=== PATIENT | male | born 1945 | race Caucasian/White ===

== ENCOUNTER 2020-05-01 10:50 | Inpatient (IN) ==
[2020-05-01] MEDS ORDERED: ASPIRIN 325 MG TABLET PO STA (11:30)
[2020-05-01] MEDS ORDERED: methylPREDNISolone SOD SUC 125 MG/2 ML VIAL IV STA (11:31)
[2020-05-01 11:48] LABS: Basophils # 0.1 10*3/uL (0.0-0.2); Basophils % 1.4 % (0.0-0.8); Eosinophils # 0.2 10*3/uL (0.0-0.87); Eosinophils % 5.8 % (0.00-10.9); Hematocrit 43.1 VOL% (42.0-52.0); Hemoglobin 15.6 GM/DL (14.0-18.0); Immature Granulocytes % 0.3 %; Immature Granulocytes Absolute 0.01 #; Lymphocytes # 1.5 10*3/uL (1.4-4.0); Lymphocytes % 41.4 % (21.2-54.2); Mean Corpuscular HGB Conc 36.2 GM/DL (32-36); Mean Corpuscular Volume 93.3 FL (87-102); Monocytes % 11.9 % (1.7-12.7); Neutrophils % 39.2 % (38.7-73.9); Platelet Count 153 T/CUMM (130-400); Red Blood Count 4.62 MC/CUMM (3.8-5.5); Red Cell Distribution Width 12.3 % (9.3-17.3); White Blood Count 3.6 T/CUMM (4-12)
[2020-05-01 12:17] LABS: PT Patient Result 10.9 SECS (9.8-11.9); Partial Thromboplastin Time 29.1 SECS (23.9-33.8)
[2020-05-01 12:42] LABS: Alanine Aminotransferase 28 U/L (16-61); Albumin 3.7 G/DL (3.4-5.0); Alkaline Phosphatase 57 U/L (45-117); Aspartate Amino Transferase 25 U/L (0-37); Blood Urea Nitrogen 10 MG/DL (7-18); Calcium 9.3 MG/DL (8.5-10.1); Estimated Glom Filtration Rate 112 ML/MIN; Glucose 123 MG/DL (74-106); Osmolality,Calculated 274.7 MOS/KG (273-304); Total Protein 7.3 G/DL (6.4-8.3)
[2020-05-01] MEDS ORDERED: ENOXAPARIN 40 MG/0.4 ML SYRINGE SUBCUT STA (13:22)
[2020-05-01] MEDS ORDERED: GLUCAGON 1 MG VIAL IM PRN (14:45)
[2020-05-01] MEDS ORDERED: BISACODYL 5 MG TABLET PO PRN (14:45)
[2020-05-01] MEDS ORDERED: ONDANSETRON 4 MG/2 ML VIAL IV PRN (14:45)
[2020-05-01] MEDS ORDERED: ZALEPLON 5 MG CAPSULE PO PRN (14:45)
[2020-05-01] MEDS ORDERED: ACETAMINOPHEN 325 MG TABLET PO PRN (14:45)
[2020-05-01] MEDS ORDERED: DEXTROSE 50% 25 GM/50 ML VIAL IV PRN (14:45)
[2020-05-01] MEDS ORDERED: SILDENAFIL 20 MG TABLET PO PRN (14:50)
[2020-05-01] MEDS: SODIUM CHLORIDE 0.45% 1,000 ML IV SCH (16:49)
[2020-05-01 17:23] LABS: Bilirubin,Urine Negative (Negative); Blood, Urine Negative (Negative); Glucose,Urine (UA) Negative (Negative); Ketones,Urine Negative (Negative); Nitrite,Urine Negative (Negative); Protein,Urine Negative; RBC,Urine <1 /HPF (0-4); Urine Appearance CLEAR (Clear); Urine Color Straw (Yellow); Urine Specific Gravity 1.004 (1.001-1.035); Urine Urobilinogen < 2.0 EU/DL (0.2-1.0); WBC,Urine <1 /HPF (0-6)
[2020-05-01] MEDS: oxyCODONE IR 5 MG TABLET PO PRN (18:42)
[2020-05-01] MEDS: ACYCLOVIR 800 MG TABLET PO SCH (20:51)
[2020-05-01] MEDS: traZODone 50 MG TABLET PO SCH (20:51)
[2020-05-02] MEDS: SODIUM CHLORIDE 0.45% 1,000 ML IV SCH ×3 (03:44→21:09)
[2020-05-02] MEDS: oxyCODONE IR 5 MG TABLET PO PRN ×3 (04:05→21:04)
[2020-05-02 05:50] LABS: Hematocrit 42.4 VOL% (42.0-52.0); Hemoglobin 15.3 GM/DL (14.0-18.0); Immature Granulocytes % 0.3 %; Immature Granulocytes Absolute 0.02 #; Lymphocytes # 0.8 10*3/uL (1.4-4.0); Lymphocytes % 11.3 % (21.2-54.2); Mean Corpuscular HGB Conc 36.1 GM/DL (32-36); Mean Corpuscular Volume 94.2 FL (87-102); Mean Platelet Volume 11.3 FL (9.6-12.0); Monocytes % 2.7 % (1.7-12.7); Neutrophils % 85.7 % (38.7-73.9); Platelet Count 148 T/CUMM (130-400); Red Cell Distribution Width 11.9 % (9.3-17.3); White Blood Count 7.1 T/CUMM (4-12)
[2020-05-02 06:08] LABS: Calcium 8.7 MG/DL (8.5-10.1); Osmolality,Calculated 276.8 MOS/KG (273-304); Risk Ratio 2.79; VLDL CHOLESTEROL 13.4 MG/DL
[2020-05-02] MEDS: ACYCLOVIR 800 MG TABLET PO SCH ×3 (09:47→20:56)
[2020-05-02] MEDS: LOSARTAN/HCTZ 50-12.5 MG TABLET PO SCH (09:47)
[2020-05-02] MEDS: SIMVASTATIN 10 MG TABLET PO SCH (09:48)
[2020-05-02] MEDS: MAGNESIUM CHLORIDE 64 MG TABLET PO SCH (09:48)
[2020-05-02] MEDS: predniSONE 20 MG TABLET PO SCH (09:48)
[2020-05-02] MEDS: PANTOPRAZOLE 40 MG TABLET PO SCH (09:48)
[2020-05-02] MEDS: gemfibroziL 600 MG TABLET PO SCH (09:48)
[2020-05-02] MEDS: METOPROLOL TARTRATE 25 MG TABLET PO SCH ×2 (10:36→20:56)
[2020-05-02] MEDS: ASPIRIN EC 81 MG TABLET PO SCH (11:57)
[2020-05-02] MEDS ORDERED: ENOXAPARIN 40 MG/0.4 ML SYRINGE SUBCUT SCH (13:00)
[2020-05-02] MEDS: APIXABAN 5 MG TABLET PO SCH (20:56)
[2020-05-02] MEDS: traZODone 50 MG TABLET PO SCH (20:56)
[2020-05-03 05:49] LABS: Basophils % 0.2 % (0.0-0.8); Eosinophils % 0.2 % (0.00-10.9); Hematocrit 40.3 VOL% (42.0-52.0); Hemoglobin 14.3 GM/DL (14.0-18.0); Immature Granulocytes % 0.3 %; Immature Granulocytes Absolute 0.03 #; Lymphocytes # 2.1 10*3/uL (1.4-4.0); Lymphocytes % 22.4 % (21.2-54.2); Mean Corpuscular HGB Conc 35.5 GM/DL (32-36); Mean Corpuscular Volume 95.5 FL (87-102); Mean Platelet Volume 10.5 FL (9.6-12.0); Monocytes % 7.8 % (1.7-12.7); Neutrophils % 69.1 % (38.7-73.9); Platelet Count 161 T/CUMM (130-400); Red Blood Count 4.22 MC/CUMM (3.8-5.5); Red Cell Distribution Width 12.4 % (9.3-17.3); White Blood Count 9.5 T/CUMM (4-12)
[2020-05-03 06:12] LABS: Calcium 8.5 MG/DL (8.5-10.1); Osmolality,Calculated 278.5 MOS/KG (273-304)
[2020-05-03] MEDS: SODIUM CHLORIDE 0.45% 1,000 ML IV SCH (07:44)
[2020-05-03] MEDS: oxyCODONE IR 5 MG TABLET PO PRN ×2 (07:44→16:02)
[2020-05-03] MEDS ORDERED: POLYVINYL ALCOHOL 1.4% OPH SOLN 15 ML BOTTLE LEFT EYE PRN (08:52)
[2020-05-03] MEDS: ASPIRIN EC 81 MG TABLET PO SCH (10:05)
[2020-05-03] MEDS: APIXABAN 5 MG TABLET PO SCH (10:05)
[2020-05-03] MEDS: LOSARTAN/HCTZ 50-12.5 MG TABLET PO SCH (10:05)
[2020-05-03] MEDS: predniSONE 20 MG TABLET PO SCH (10:05)
[2020-05-03] MEDS: METOPROLOL TARTRATE 25 MG TABLET PO SCH (10:05)
[2020-05-03] MEDS: MAGNESIUM CHLORIDE 64 MG TABLET PO SCH (10:05)
[2020-05-03] MEDS: SIMVASTATIN 10 MG TABLET PO SCH (10:06)
[2020-05-03] MEDS: gemfibroziL 600 MG TABLET PO SCH (10:06)
[2020-05-03] MEDS: PANTOPRAZOLE 40 MG TABLET PO SCH (10:06)
[2020-05-03] MEDS: ACYCLOVIR 800 MG TABLET PO SCH ×2 (12:11→16:02)
[2020-05-03 15:35] VITALS: BP 120/71
== END 2020-05-03 17:25 | disposition home or self-care (01) | DRG 74 ==
LOC: N.ED 10:50 → SUATTDRO 14:45 → N.EDINP 14:45 → N.3E 17:05
PROVIDERS: ADMIT Internal Medicine Nephrology; ATTEND Internal Medicine